=== PATIENT | female | born 1960 ===

== ENCOUNTER 2018-04-06 20:04 | Emergency (ER) | payer SELFPAY ==
[2018-04-06 20:08] VITALS: BP 125/77; PULSE 69; RESP 18; TEMP 97.7; O2SAT 98
[2018-04-06] MEDS ORDERED: Sodium Chloride 0.9% 1,000 ML IV STA (20:39)
[2018-04-06 21:36] LABS: BASO % 0.6 % (0.0-2.0); EOS % 0.3 % (0.0-4.0); HEMOGLOBIN 11.6 g/dL (12.0-16.0); LYMPH # 1.2 K/uL (1.0-4.3); LYMPH % 19.1 % (20.0-40.0); MEAN CELL VOLUME 84.2 fl (81.0-99.0); MEAN CORPUSCULAR HEMOGLOBIN 27.6 pg (27.0-31.0); MEAN CORPUSCULAR HGB CONC 32.8 g/dL (33.0-37.0); MEAN PLATELET VOLUME 8.5 fl (7.2-11.7); MONO # 0.4 K/uL (0.0-0.8); MONO % 6.3 % (0.0-10.0); NEUT # 4.7 K/uL (1.8-7.0); NEUT % 73.7 % (50.0-75.0); RBC 4.19 Mil/uL (3.80-5.20); RED CELL DISTRIBUTION WIDTH 13.2 % (11.5-14.5); WHITE BLOOD COUNT 6.4 K/uL (4.8-10.8)
[2018-04-06 21:43] LABS: ALB/GLOB RATIO 1.5 (1.0-2.1); ALBUMIN 4.4 g/dL (3.5-5.0); ALT/SGPT 28 U/L (9-52); AST/SGOT 38 U/L (14-36); BLOOD UREA NITROGEN 12 mg/dl (7-17); CALCIUM 9.1 mg/dL (8.4-10.2); GFR AFRICAN-AMERICAN > 60; GFR NON-AFRICAN AMERICAN > 60
--- NOTE | 2018-04-06 21:56 | ED PDOC ---
Syncope/Near Syncope/Dizziness Time Seen by Provider: 04/06/18 20:28 Chief Complaint (Nursing): Syncope Chief Complaint (Provider): Syncope History Per: Patient, Family History/Exam Limitations: no limitations Onset/Duration Of Symptoms: Mins (prior to arrival) Current Symptoms Are (Timing): Still Present Additional Complaint(s): 57 year old female presents to the ED via EMS after a syncopal episode prior to arrival. Patient states she was at an outside graduation in a field for several hours and did not have much water. Thirty minutes prior to arrival, she reports developing a gradual onset headache and then had a syncopal episode, to which her family states also included a few seconds of convulsions after she passed out. Now she notes she feels "dehyrdrated" and is requesting IV fluids. Of note , she says this has happened to her in the past. She also reports now feeling nausea with retching but denies outright vomiting, focal weakness / numbness, and blurry vision. Reports she has had h/o syncopal episodes. PMD: in [place] Past Medical History Reviewed: Historical Data, Nursing Documentation, Vital Signs Vital Signs: Last Vital Signs Temp 97.7 F 04/06/18 20:07 Pulse 69 04/06/18 20:07 Resp 18 04/06/18 20:07 BP 125/77 04/06/18 20:07 Pulse Ox 98 04/06/18 20:07 - Medical History Other PMH: breast cancer, on a chemo pill - Surgical History Other surgeries: Bilat mastectomy - Family History Family History: States: No Known Family Hx - Social History Current smoker - smoking cessation education provided: No Alcohol: None Drugs: Denies - Allergies Allergies/Adverse Reactions: Allergies Allergy/AdvReac Type Severity Reaction Status Date / Time No Known Allergies Allergy Verified 04/06/18 20:07 Review of Systems ROS Statement: Except As Marked, All Systems Reviewed And Found Negative Constitutional: Positive for: Other (dehydrated) Eyes: Negative for: Other (blurry vision) Gastrointestinal: Positive for: Nausea (with retching). Negative for: Vomiting Neurological: Positive for: Headache (gradual onset), Other (syncope with convulsions). Negative for: Weakness, Numbness Physical Exam - Reviewed Nursing Documentation Reviewed: Yes Vital Signs Reviewed: Yes - Physical Exam Appears: Positive for: Non-toxic, No Acute Distress (but tired appearing) Head Exam: Positive for: ATRAUMATIC, NORMOCEPHALIC Skin: Positive for: Warm, Dry Eye Exam: Positive for: EOMI, PERRL ENT: Positive for: Pharynx Is (clear otherwise), Other (tacky mucous membranes) Neck: Positive for: Painless ROM, Supple Cardiovascular/Chest: Positive for: Regular Rate, Rhythm, Chest Non Tender. Negative for: Murmur Respiratory: Positive for: Normal Breath Sounds. Negative for: Respiratory Distress Gastrointestinal/Abdominal: Positive for: Soft. Negative for: Tenderness, Mass , Distended, Guarding, Rebound Back: Positive for: Normal Inspection. Negative for: Decreased ROM Extremity: Positive for: Normal ROM. Negative for: Deformity Lymphatic: Negative for: Adenopathy Neurologic/Psych: Positive for: Alert, charger operator II-XII (intact), Oriented (x3). Negative for: Motor/Sensory Deficits - Laboratory Results Result Diagrams: 04/06/18 21:26 04/06/18 21:26 - ECG O2 Sat by Pulse Oximetry: 98 (RA) Pulse Ox Interpretation: Normal Medical Decision Making Medical Decision Making: Initial Impression: syncope, dehydration, r/o electrolyte abnormality and traumatic brain injury Time: 21:26 Initial Plan: --Type and screen --CT Head w/o contrast --EKG --CMP --Lact acid --Mg and P --Trop I --Urine dipstick --CBC with differential --Glucose --Normal Saline IV Scribe Attestation: Documented by Mary Meadows, acting as a scribe for Xiao Rodas MD. Provider Scribe Attestation: All medical entries made by the Scribe were at my direction and personally dictated by me. I have reviewed the chart and agree that the record accurately reflects my personal performance of the history, physical exam, medical decision making, and the department course for this patient. I have also personally directed, reviewed, and agree with the discharge instructions and disposition. Time: [address] RESULTS FINDINGS: Brain: There is mild prominence of sulci and gyri. Ventricles are normal in size and configuration. There is no midline shift. There are no intra-axial or extra-axial mass lesions or areas of hemorrhage. There are no abnormal fluid collections. Short-white differentiation is maintained. Ventricles: See above. Bones: Cranial vault is intact. Soft tissues: unremarkable Sinuses: There is no acute sinusitis. Ears and mastoids: Middle ears and mastoids are unremarkable Orbits: Orbital contents are unremarkable. IMPRESSION: No acute intracranial abnormality Dictated By: Daylin Roberts MD, MD Dictated Date/Time: 04/06/182217 Signed By: Daylin Roberts MD Date Signed: 2217 Transcribed By: FREDY Transcribe Date/Time : 04/06/182217 NOELLE/JULIA 2200 On reeval pt feeling completely better and eager to be discharged. Vitals improved. Advised to continue oral hydration at home and to avoid exposure to excessive heat. Questions/concerns answered/addressed. Stable for discharge. Scribe Attestation: Documented by Valerie Anguiano acting as a scribe for Dr. Xiao Rodas. Provider Scribe Attestation: All medical record entries made by the Scribe were at my direction and personally dictated by me. I have reviewed the chart and agree that the record accurately reflects my personal performance of the history, physical exam, medical decision making, and the department course for this patient. I have also personally directed, reviewed, and agree with the discharge instructions and disposition. Disposition - Clinical Impression Clinical Impression: Syncope, Heat exhaustion Counseled Patient/Family Regarding: Studies Performed, Diagnosis - Disposition Referrals: [facility] [Outside] (FOLLOW UP WITH YOUR DOCTOR OR CLINIC IN 2-3 DAYS FOR REEVALUATION) Disposition: Routine/Home Disposition Time: 23:17 Condition: IMPROVED Instructions: Syncope (Fainting), Heat Exhaustion and Heat Stroke (DC) Forms: [facility] (Sinhala) Print Language: HONG KONGER
--- NOTE | 2018-04-06 22:18 | CT ---
EXAM: CT Head Without Intravenous Contrast EXAM DATE/TIME: 04/06/2018 8:37 PM CLINICAL HISTORY: 57 years old, female; Pain and signs and symptoms; Other: Syncope, and poss seizure; Headache; Additional info: Syncope headache TECHNIQUE: Axial computed tomography images of the head/brain without intravenous contrast. All CT scans at this facility use at least one of these dose optimization techniques: automated exposure control; mA and/or kV adjustment per patient size (includes targeted exams where dose is matched to clinical indication); or iterative reconstruction. Coronal and sagittal reformatted images were created and reviewed. COMPARISON: There are no prior studies for comparison. FINDINGS: Brain: There is mild prominence of sulci and gyri. Ventricles are normal in size and configuration. There is no midline shift. There are no intra-axial or extra-axial mass lesions or areas of hemorrhage. There are no abnormal fluid collections. Short-white differentiation is maintained. Ventricles: See above. Bones: Cranial vault is intact. Soft tissues: unremarkable Sinuses: There is no acute sinusitis. Ears and mastoids: Middle ears and mastoids are unremarkable Orbits: Orbital contents are unremarkable. IMPRESSION: No acute intracranial abnormality
--- NOTE | 2018-04-07 13:06 | CARD ---
APPROVED REPORT EKG Measurement Heart [id number] <Conclusion> Normal sinus rhythm Normal ECG
== END 2018-04-06 23:35 | disposition home or self-care (01) ==
LOC: H.ER 20:04
DX: R55 Syncope and collapse (principal); T67.3XXA Heat exhaustion, anhydrotic, initial encounter; Z85.3 Personal history of malignant neoplasm of breast
CPT/HCPCS: 70450; 80053; 82948; 83605; 83735; 84100; 84484; 85025; 86850; 86900; 93005; 99285; J7030